=== PATIENT | female | born 1955 | race Caucasian/White ===

== ENCOUNTER 2025-05-25 18:53 | Observation (INO) ==
--- NOTE | 2025-05-25 19:45 | Emergency Department Note ---
Impression & Plan Pain in right hip, Sciatica, Intractable pain ED Provider Note CHIEF COMPLAINT: Right hip pain HISTORY OF PRESENTING ILLNESS: This 70-year-old female patient presents to the emergency department with her for evaluation of right hip pain that radiates down the right leg. She denies any injury or trauma. She denies any back pain. Denies any loss of control of their bowel or bladder functions. Denies any numbness of their legs. Denies weakness of their legs. Denies any saddle paresthesias. Denies abdominal pain, nausea, or vomiting. Denies urinary symptoms or changes in their BMs. Denies any chest pain or shortness of breath. The patient was seen in the ER on 05/23/2025 for similar symptoms. The patient had a CT scan of her lumbar spine without contrast that showed moderate left L4/5 neuroforaminal stenosis. Recommend MRI of the lumbar spine for further evaluation if indicated. Laboratory studies without concerning abnormalities. REVIEW OF SYSTEMS: See HPI for pertinent positives and pertinent negatives. ALLERGIES: Adhesive, hydrochlorothiazide, Wellbutrin, Demerol, Chantix, hydrocodone, prednisone MEDICATIONS: See below PAST MEDICAL HISTORY: See below PHYSICAL EXAM: VITALS: Vitals are noted on the nurse's note and reviewed by myself. GENERAL: Appears in pain, but non toxic in appearance and in no acute distress. Non-diaphoretic. SKIN: The skin of the back was without obvious rashes, erythema, edema, pilonidal abscess, or bruising. The skin of the right groin and right lower extremity without erythema, edema, rash, bruising, abscess, boil, or other abnormal skin lesion. HEAD: Normocephalic atraumatic. EYES: Pupils equal round and reactive to light and accommodation. The Extraocular movements intact. NECK: Supple without nuchal rigidity. No cervical spine tenderness. No paraspinous muscle tenderness. No lymphadenopathy. HEART: Regular rate and rhythm without murmurs gallops or rubs. LUNGS: Clear to auscultation bilaterally without wheezes, rales or rhonchi. ABDOMEN: Positive bowel sounds x 4. Normal tympanic percussion. Soft, nontender, without masses or organomegaly. Garcia sign negative. MUSCULOSKELETAL: There is no tenderness over the lumbar spinous processes. There is minimal tenderness over the paraspinous muscles on the right side. There is no tenderness over the thoracic spine or paraspinous muscles. There are no muscle spasms present. The patient is slow to move around with maximum tenderness with movement of the right hip. Positive straight leg raise test on the right side. Full ROM of the bilateral lower extremities, but with pain with range of motion of the right hip. Strength 5/5 and equal in the bilateral lower extremities. Deep tendon reflexes 2+ in the lower extremities. Dorsalis pedis and posterior tibial pulse 2+ and equal bilaterally. NEURO: Patient was alert and oriented to person place and time. Normal sensation to light and sharp touch of the bilateral lower extremities. No focal neurological deficits. DIFFERENTIAL DIAGNOSIS: Differential diagnosis includes strain/sprain, muscle spasm, disc herniation, fracture, subluxation, metastatic disease, cord compression, discitis, sciatica, cauda equina, conus medullaris syndrome, infection, epidural abscess, epidural hematoma, aortic disease, renal colic, UTI, pyelonephritis, gastrointestinal, as well as other pathologies. ED COURSE AND MEDICAL DECISION MAKING: HISTORY FROM INDEPENDENT HISTORIAN: Additional history obtained from the patient's MEDICATIONS GIVEN: 500 mL normal saline solution bolus. Fentanyl 50 mcg IV x 2, Zofran 4 mg IV, Toradol 10 mg IV, Valium 5 mg IV, Tylenol 1000 mg IV. The patient was initially ordered 24 mg of methylprednisolone prior to discharge before the patient decided she required admission for pain control. INTERPRETATION OF LABS: I interpreted the labs with full lab results as below in the lab section of this note. Laboratory results pertinent to the emergent complaint are discussed in the MDM section below. The patient was advised to follow up with their PCP and/or specialist(s) for further outpatient monitoring and management of any abnormal results. INTERPRETATION OF IMAGING: Imaging studies were interpreted by myself and read by radiology as per the imaging section of this note. The patient was advised to follow up with their PCP and/or specialist(s) for further outpatient management of any non-emergent abnormal findings. X-rays of the right hip and pelvis were negative for acute fracture, dislocation, or other acute findings. There are mild degenerative changes of the right hip. Venous Doppler of the right lower extremity was negative for DVT, SVT, or other acute abnormalities. CONSULTATIONS: On-call hospitalist MDM SUMMARY: I examined the patient. The patient was seen on 05/23/2025 for low back pain radiating into the right leg. Laboratory studies were without concerning abnormalities. CT scan of the lumbar spine without contrast showed moderate left L4/5 neuroforaminal stenosis. The patient had no focal neurologic deficits on exam and was discharged home. However, the patient has had continued symptoms that are not controlled well at home. No new or changing symptoms. On exam, the patient has no focal neurologic deficits. No red flag symptoms by history. I do not suspect emergent etiology such as conus medullaris syndrome, cauda equina syndrome, epidural abscess, or epidural hematoma. I do not feel the patient requires emergent MRI at this time based on history and exam. An IV lock was placed and the patient was medicated as above. X-rays of the right hip and pelvis were negative for acute fracture, dislocation, or other acute findings. There are mild degenerative changes of the right hip. Venous Doppler of the right lower extremity was negative for DVT, SVT, or other acute abnormalities. The patient still had continued pain despite the above treatment. Repeat exam again with no focal neurologic deficits. Continued normal abdominal exam and no abdominal pain. No rashes, lesions, or evidence for infection in the area of pain or discomfort. I had a meaningful discussion about this patient with Dr. Miles who agrees with my assessment and the treatment plan. I discussed outpatient treatment including a Medrol Dosepak, Flexeril, and Oxy IR. Initially the patient was agreeable to trial this, but after receiving additional pain medication in the ER, she still had continued pain despite the multiple pain medications and she did not feel she could appropriately care for herself at home. The patient's did not feel that he could adequately care for her in this amount of pain either. Laboratory studies obtained including a CBC and CMP without concerning abnormalities. The patient was unable to give a urine sample while in the ER. I spoke with the on-call hospitalist who agreed to admit the patient for pain control and further evaluation. Please refer to their dictation for further details. The patient was admitted in stable condition. DIAGNOSIS: Right hip pain likely secondary to sciatica Intractable pain Past Med/Surg History Problem List (Updated 05/26/25 @ 00:19 by Lashell Masters PA-C) Intractable pain (Acute) Sciatica (Acute) Pain in right hip (Acute) Acute lumbar radiculopathy (Acute) COVID-19 (Acute) Colon cancer screening Right-sided back pain Right flank pain Nocturnal hypoxemia Branch retinal artery occlusion Hammertoe of second toe of right foot History of bladder disorder Bicipital tendonitis of left shoulder Psoriasis Allergic rhinitis (Chronic) Cigarette nicotine dependence currently using the patch as well Hx of hematuria years ago GERD (gastroesophageal reflux disease) (Chronic) IBS (irritable bowel syndrome) (Chronic) Allergies Dyslipidemia (Chronic) Anxiety (Chronic) well controlled currently Mild obstructive sleep apnea cpap at night Hypertension (Chronic) Medical History Osteoarthritis History of Mohs micrographic surgery for skin cancer Hx of malignant neoplasm of skin Family history of Crohn's disease C. difficile colitis Surgical History H/O hammer toe correction History of cystoscopy History of esophagogastroduodenoscopy (EGD) History of colonoscopy History of cataract surgery S/P tubal ligation S/P hysterectomy Family History Mother Heart disease Hypertension Brother Crohn's disease Fibromyalgia Allergic rhinitis Father Hypertension Other No family history of adverse response to anesthesia Denies family history of Ovarian cancer Prostate cancer Diabetes Myocardial infarction Breast cancer Colorectal cancer Social History Smoking Status: Current every day smoker Tobacco Type: Cigarettes Age Started Using Tobacco: 28; packs per day: 0.5; Cigarettes Per Day: 10; Second Hand Exposure: No; Do You Dip or Chew Tobacco: No; Hx Alcohol Use: Yes Alcohol Intake Frequency: 2-3 x/Week Hx Substance Use: No Preferred Language: Latvian Communication Ability: Effective Program Review Director Required: No Beliefs That Will Affect Care: None marital status: Current Living Situation: Spouse current occupational status: retired Feels Safe at Home: Yes Childhood Exposure to Second-Hand Smoke: Yes Dental Care, Regularly: Yes Physical Activity Frequency: 3-4 Times per Week Seatbelt Use: always Sunscreen Use: Yes Assistive Devices: CPAP and Glasses Allergies Allergies Allergy/AdvReac Type Severity Reaction Status Date / Time adhesive Allergy Intermediate skin Verified 04/15/25 12:55 irritation hydrochlorothiazide Allergy Rash Verified 04/15/25 12:55 bupropion [From Wellbutrin] AdvReac Severe Palpitation Verified 04/15/25 12:55 s meperidine [From Demerol] AdvReac Severe Hallucinati Verified 04/15/25 12:55 ng varenicline [From Chantix] AdvReac Severe Confusion Verified 04/15/25 12:55 hydrocodone AdvReac Intermediate Confusion Verified 04/15/25 12:55 prednisone AdvReac Intermediate Palpitation Verified 04/15/25 12:55 s Home Meds Home Medications Medication Instructions Recorded Confirmed cholecalciferol (vitamin D3) 50 50 mcg PO QAM 05/29/20 05/25/25 mcg (2,000 unit) capsule (Vitamin D3) multivitamin 1 tab PO QAM 05/29/20 05/25/25 Previous Rx's Medication Instructions Recorded CPAP Machine #1 ea 09/28/20 atorvastatin 80 mg tablet 80 mg PO DAILY #90 tabs 04/22/24 montelukast 10 mg tablet 10 mg PO QAM #90 tabs 04/22/24 aspirin 81 mg tablet,delayed 81 mg PO DAILY #30 tabs 05/20/24 release ipratropium bromide 21 mcg (0.03 1 spray intranasal .COMPLEX 08/19/24 %) nasal spray Congestion #30 mL dexlansoprazole 60 mg 60 mg PO QAM GERD #90 caps 11/26/24 capsule,biphase delayed release famotidine 20 mg tablet 20 mg PO QID PRN gerd #360 tabs 11/26/24 betamethasone dipropionate 0.05 % 1 applic topical .COMPLEX #60 mL 12/25/24 lotion diltiazem HCl 120 mg 120 mg PO DAILY #90 caps 04/19/25 capsule,extended release 24 hr lisinopril 40 mg tablet 40 mg PO QAM #90 tabs 05/03/25 lorazepam 0.5 mg tablet 0.25 mg (1/2 x 0.5 mg) PO DAILY 05/03/25 PRN Anxiety #30 tabs nicotine 21 mg/24 hr daily 1 patch transdermal Q24H #14 ea 05/19/25 transdermal patch Results & Data (ED) Vital Signs Vital Signs - 24 hr 05/25/25 18:56 05/25/25 23:12 05/25/25 23:12 Temperature 36.8 C Temperature Source Temporal Artery Scan Pulse Rate 92 H Pulse Rate [Finger] Pulse Rhythm [Finger] Pulse Strength [Finger] Respiratory Rate 18 Respiratory Effort / Characteristics Non-Labored Spontaneous Respiratory Depth Normal Respiratory Pattern Regular Blood Pressure [Right Arm] Blood Pressure Mean [Right Arm] Blood Pressure Position Sitting Pulse Oximetry 96 89 L 98 Oxygen Delivery Method Room Air Room Air Nasal Cannula Oxygen Flow Rate 2 Sepsis Recent Fever Within 48 Hours No Sepsis New/Unexplained Change in Mental Status N/A Sepsis Action Taken by Nursing No Action Required 05/25/25 23:24 Temperature Temperature Source Pulse Rate Pulse Rate [Finger] 73 Pulse Rhythm [Finger] Regular Pulse Strength [Finger] Normal Respiratory Rate 18 Respiratory Effort / Characteristics Non-Labored Spontaneous Respiratory Depth Normal Respiratory Pattern Regular Blood Pressure [Right Arm] 169/85 H Blood Pressure Mean [Right Arm] 113 Blood Pressure Position Pulse Oximetry 97 Oxygen Delivery Method Room Air Oxygen Flow Rate Sepsis Recent Fever Within 48 Hours Sepsis New/Unexplained Change in Mental Status Sepsis Action Taken by Nursing Laboratory Data 05/25/25 23:19 05/25/25 23:19 Lab Results 05/25/25 Range/Units 23:19 WBC 8.29 (4.8-10.8) K/ul RBC 4.19 L (4.20-5.40) M/uL Hgb 12.9 (12.0-16.0) g/dl Hct 38.4 (37.0-47.0) % MCV 91.6 (80.0-100.0) fL MCH 30.8 (25.0-34.0) pg MCHC 33.6 (32.0-36.0) g/dL RDW Std Deviation 53.5 H (36.4-46.3) fL RDW Coeff of Lea 15.9 H (11.5-14.5) % Plt Count 240 (130-400) K/uL MPV 9.9 (9.4-12.4) fL Immature Gran % (Auto) 0.4 % Neut % (Auto) 57.5 % Lymph % (Auto) 31.1 % [place] % (Auto) 9.4 % Eos % (Auto) 1.2 % Baso % (Auto) 0.4 % Neut # (Auto) 4.77 (1.40-6.50) K/uL Lymph # (Auto) 2.58 (1.20-3.40) K/uL [place] # (Auto) 0.78 H (0.11-0.59) K/uL Eos # (Auto) 0.10 (0.00-0.50) K/uL Baso # (Auto) 0.03 (0.00-0.20) K/uL Immature Gran # (Auto) 0.03 (0.01-0.20) K/uL Sodium 140 (136-145) mmol/L Potassium 3.8 (3.5-5.1) mmol/L Chloride 106 (98-107) mmol/L Carbon Dioxide 27 (21-32) mmol/L Anion Gap 7 (3-11) BUN 13 (6-23) mg/dl Creatinine 0.71 (0.6-1.2) mg/dl Est Cr Clr Drug Dosing 62.8 ml/min eGFR 90.28 BUN/Creatinine Ratio 18.3 (10-20) Glucose 133 H (70-99(Fasting)) mg/dl Calcium 8.6 (8.6-10.3) mg/dl Total Bilirubin 0.3 (0.2-1.0) mg/dl AST 14 (13-39) U/L ALT 16 (7-52) U/L Alkaline Phosphatase 64 (34-104) U/L Total Protein 6.7 (6.0-8.3) gm/dl Albumin 4.0 (3.4-5.0) gm/dl Globulin 2.7 (2.5-4.0) gm/dl Albumin/Globulin Ratio 1.5 (0.9-2) Administered Medications Discontinued Medications Diazepam (Diazepam Inj 5 Mg/Ml 2 Ml Carp) 5 mg IV NOW ONE Stop: 05/25/25 22:37 Last Admin: 05/25/25 22:53 Dose: 5 mg Documented By: MARII Fentanyl Citrate (Fentanyl Citrate Pf 100 Mcg/2 Ml Vial) 50 mcg IV NOW STA Stop: 05/25/25 20:19 Last Admin: 05/25/25 20:25 Dose: 50 mcg Documented By: JAYANT Fentanyl Citrate (Fentanyl Citrate Pf 100 Mcg/2 Ml Vial) 50 mcg IV NOW STA Stop: 05/25/25 21:33 Last Admin: 05/25/25 21:43 Dose: 50 mcg Documented By: NIKKO Acetaminophen (Ofirmev) 1,000 mg in 100 mls @ 400 mls/hr IV NOW STA Stop: 05/25/25 22:50 Last Infusion: 05/25/25 23:26 Dose: Infused Documented By: Admin: 05/25/25 22:53 Dose: 400 mls/hr Documented By: MARII Sodium Chloride (Nss) 500 mls @ 999 mls/hr IV .Q31M ONE Stop: 05/25/25 23:56 Last Admin: 05/25/25 23:38 Dose: 999 mls/hr Documented By: JOSELITO Ketorolac Tromethamine (Ketorolac Tromethamine 15 Mg/Ml Vial) 10 mg IV NOW ONE Stop: 05/25/25 21:33 Last Admin: 05/25/25 21:44 Dose: 10 mg Documented By: NIKKO Methylprednisolone (Methylprednisolone 4 Mg Tab) 24 mg PO NOW ONE Stop: 05/25/25 22:37 Last Admin: 05/25/25 23:57 Dose: Not Given Documented By: JOSELITO Ondansetron HCl (Ondansetron Inj 2 Mg/Ml 2 Ml Vial) 4 mg IV NOW STA Stop: 05/25/25 20:19 Last Admin: 05/25/25 20:25 Dose: 4 mg Documented By: JAYANT Imaging Data Radiologist's Impression: Hip/Pelvis X-Ray 05/25/25 20:18 Exam(s): XR HIP + PELVIS, 2-3 views EXAM: XR Right Hip With Pelvis When Performed, 2 or 3 Views CLINICAL HISTORY: Reason for exam: Right hip pain. TECHNIQUE: Two or three views of the right hip with pelvis when performed. COMPARISON: No relevant prior studies available. FINDINGS: Bones/joints: Mild degenerative changes of the right hip. No acute fracture. No dislocation. Soft tissues: Unremarkable. IMPRESSION: No acute findings in the right hip. Electronically signed by: Yuri Moore MD 05/25/25 21:12 PM Venous Doppler Study 05/25/25 20:18 Exam(s): US VENOUS RIGHT LOWER EXTREMITY EXAM: US Duplex Right Lower Extremity Veins CLINICAL HISTORY: Reason for exam: Right leg pain - eval DVT. TECHNIQUE: Real-time duplex ultrasound scan of the right lower extremity veins integrating B-mode two-dimensional vascular structure, Doppler spectral analysis, color flow Doppler imaging and compression. COMPARISON: No relevant prior studies available. FINDINGS: Deep veins: Unremarkable. No DVT in the visualized common femoral, femoral, proximal deep femoral or popliteal veins. The veins demonstrate normal color flow, are normally compressible, with normal phasic flow and/or augmentation response. Superficial veins: Unremarkable. No thrombus in the visualized great saphenous vein. Soft tissues: No acute findings. No popliteal cyst. IMPRESSION: No DVT. Electronically signed by: Yuri Moore MD 05/25/25 22:24 PM Discharge Plan Visit Data Chief Complaint: Hip Pain Stated Complaint: HIP PAIN ED Provider: Ashleigh Miles ED Midlevel Provider: Lashell aMsters Discharge Problem: Pain in right hip, Sciatica, Intractable pain Patient Disposition: Admitted As Inpatient Condition: Fair Discharge Problem: Sciatica Qualifiers: Laterality: right Qualified Code(s): M54.31 - Sciatica, right side
[2025-05-25] MEDS: ONDANSETRON INJ 2 MG/ML 2 ML VIAL IV STA (20:25)
--- NOTE | 2025-05-25 21:12 | XRay Report ---
Exam(s): XR HIP + PELVIS, 2-3 views EXAM: XR Right Hip With Pelvis When Performed, 2 or 3 Views CLINICAL HISTORY: Reason for exam: Right hip pain. TECHNIQUE: Two or three views of the right hip with pelvis when performed. COMPARISON: No relevant prior studies available. FINDINGS: Bones/joints: Mild degenerative changes of the right hip. No acute fracture. No dislocation. Soft tissues: Unremarkable. IMPRESSION: No acute findings in the right hip. Electronically signed by: Yuri Moore MD 05/25/25 21:12 PM
[2025-05-25] MEDS: KETOROLAC TROMETHAMINE 15 MG/ML VIAL IV ONE (21:44)
--- NOTE | 2025-05-25 22:25 | Ultrasound Report ---
Exam(s): US VENOUS RIGHT LOWER EXTREMITY EXAM: US Duplex Right Lower Extremity Veins CLINICAL HISTORY: Reason for exam: Right leg pain - eval DVT. TECHNIQUE: Real-time duplex ultrasound scan of the right lower extremity veins integrating B-mode two-dimensional vascular structure, Doppler spectral analysis, color flow Doppler imaging and compression. COMPARISON: No relevant prior studies available. FINDINGS: Deep veins: Unremarkable. No DVT in the visualized common femoral, femoral, proximal deep femoral or popliteal veins. The veins demonstrate normal color flow, are normally compressible, with normal phasic flow and/or augmentation response. Superficial veins: Unremarkable. No thrombus in the visualized great saphenous vein. Soft tissues: No acute findings. No popliteal cyst. IMPRESSION: No DVT. Electronically signed by: Yuri Moore MD 05/25/25 22:24 PM
[2025-05-25] MEDS: ACETAMINOPHEN 1,000 MG/100 ML VIAL IV STA (22:53)
[2025-05-25] MEDS: SODIUM CHLORIDE 0.9% 500 ML IV ONE (23:38)
[2025-05-25 23:39] LABS: Hematocrit (blood only) 38.4 % (37.0-47.0); Hemoglobin 12.9 g/dl (12.0-16.0); Immature Granulocytes # (auto) 0.03 K/uL (0.01-0.20); Immature Granulocytes % (auto) 0.4 %; Mean Corpuscular Hemoglobin 30.8 pg (25.0-34.0); Mean Corpuscular Volume 91.6 fL (80.0-100.0); Platelet Count 240 K/uL (130-400); RDW Standard Deviation 53.5 fL (36.4-46.3); Red Blood Count 4.19 M/uL (4.20-5.40); White Blood Count 8.29 K/ul (4.8-10.8)
[2025-05-25] MEDS ORDERED: HYDROmorphone INJ 0.5 MG/0.5 ML SYR IV PRN (23:48)
--- NOTE | 2025-05-25 23:52 | History & Physical Report ---
Date of Service May 25, 2025 Assessment & Plan (1) Pain in right hip: (2) Intractable pain: (3) Lumbar foraminal stenosis: Plan Patient is a 70-year-old female with a past medical history of tobacco use, NIDIA on CPAP, HTN, HLD, GERD, IBS-C, anxiety, hematuria. Patient presented due to sudden onset right sided hip pain that began on Saturday after walking has been constant and severe since. She was evaluated in the ED 05/23 and discharged home after negative workup and lumbar spine CT revealed moderate left L4-5 neural foraminal stenosis. Patient returned to the ED 05/25 due to significant pain. Hip XR and right venous Doppler were negative for acute changes. She is being admitted for intractable hip pain. #intractable right hip pain hip x-ray negative, venous Doppler negative, lumbar spine CT revealed moderate left L4-5 neural foraminal stenosis (recommend MRI for further evaluation). Laboratories WNL. Denies any trauma to the area, denies any incontinence, no focal deficits on exam. MRI hip and lumbar spine ordered Pain control with IV Tylenol, Toradol, and Dilaudid as needed for breakthrough pain Narcan as needed Lidoderm patch ordered Zofran as needed - k pad prn Defer steroid use as no acute indication on admission, noted allergy to prednisone - discontinue medrol PO ordered in ED Defer PT/OT consults as patient able to ambulate #HTN continue lisinopril and diltiazem #NIDIA CPAP hs ordered #HLD continue with ASA and atorvastatin #Tobacco use 1 ppd for 30+ years. Encourage smoking cessation Declines need for nicotine patch on admission #GERD/IBS-C continue PPI and famotidine #History of hematuria previously evaluated by urology for possible bladder lesion. Patient denies any recent hematuria. VTE ppx: SCDs, low risk Dispo: med surg, obs Admission and Anticipated Discharge Date Admission Date: 05/25/25 - note that admit orders were placed prior to midnight History of Present Illness Chief Complaint: hip pain Primary Care Provider: Erika Harmon MD Patient is a 70-year-old female with a past medical history of tobacco use, NIDIA on CPAP, HTN, HLD, GERD, IBS-C, anxiety, hematuria. Patient presented due to sudden onset right sided hip pain that began on Saturday after walking has been constant and severe since. She was evaluated in the ED 05/23 and discharged home after negative workup and lumbar spine CT revealed moderate left L4-5 neural foraminal stenosis. Patient returned to the ED 05/25 due to significant pain. Hip XR and right venous Doppler were negative for acute changes. She is being admitted for intractable hip pain. Patient seen at bedside with her present. She states she went on a walk Saturday and developed severe right hip pain that radiates down her leg to her knee. She denies any numbness, tingling, bladder or bowel incontinence, trauma to the area. She typically ambulates without assistance at baseline and has been living. The pain has been about the same since it started and constant. She still has 8 out of 10 pain at bedside after receiving fentanyl 50 mcg IV x 2, Toradol 10 mg IV, Valium 5 mg IV, Tylenol 1G IV in the ED. Patient denies any back pain however recent lumbar spine CT revealed stenosis, she denies any previous spinal surgeries or trauma to her spine. She denies any fevers, chills, chest pain, shortness of breath, abdominal pain, bowel changes. She continues to smoke 1 pack/day of cigarettes, declines need for nicotine patch at this time. She occasionally drinks alcohol. She is compliant with her home CPAP for sleep apnea. She took all of her home medications today. She wishes to be DNR/DNI. Allergies Allergy/AdvReac Type Severity Reaction Status Date / Time adhesive Allergy Intermediate skin Verified 04/15/25 12:55 irritation hydrochlorothiazide Allergy Rash Verified 04/15/25 12:55 bupropion [From Wellbutrin] AdvReac Severe Palpitation Verified 04/15/25 12:55 s meperidine [From Demerol] AdvReac Severe Hallucinati Verified 04/15/25 12:55 ng varenicline [From Chantix] AdvReac Severe Confusion Verified 04/15/25 12:55 hydrocodone AdvReac Intermediate Confusion Verified 04/15/25 12:55 prednisone AdvReac Intermediate Palpitation Verified 04/15/25 12:55 s Home Medications Medication Instructions Recorded Confirmed Type cholecalciferol (vitamin D3) 50 50 mcg PO QAM 05/29/20 05/25/25 History mcg (2,000 unit) capsule (Vitamin D3) multivitamin 1 tab PO QAM 05/29/20 05/25/25 History CPAP Machine #1 ea 09/28/20 05/25/25 Rx atorvastatin 80 mg tablet 80 mg PO DAILY #90 tabs 04/22/24 05/25/25 Rx montelukast 10 mg tablet 10 mg PO QAM #90 tabs 04/22/24 05/25/25 Rx aspirin 81 mg tablet,delayed 81 mg PO DAILY #30 tabs 05/20/24 05/25/25 Rx release ipratropium bromide 21 mcg (0.03 1 spray intranasal .COMPLEX 08/19/24 05/25/25 Rx %) nasal spray Congestion #30 mL dexlansoprazole 60 mg 60 mg PO QAM GERD #90 caps 11/26/24 05/25/25 Rx capsule,biphase delayed release famotidine 20 mg tablet 20 mg PO QID PRN gerd #360 tabs 11/26/24 05/25/25 Rx betamethasone dipropionate 0.05 % 1 applic topical .COMPLEX #60 mL 12/25/24 05/25/25 Rx lotion diltiazem HCl 120 mg 120 mg PO DAILY #90 caps 04/19/25 05/25/25 Rx capsule,extended release 24 hr lisinopril 40 mg tablet 40 mg PO QAM #90 tabs 05/03/25 05/25/25 Rx lorazepam 0.5 mg tablet 0.25 mg (1/2 x 0.5 mg) PO DAILY 05/03/25 05/25/25 Rx PRN Anxiety #30 tabs nicotine 21 mg/24 hr daily 1 patch transdermal Q24H #14 ea 05/19/25 05/25/25 Rx transdermal patch Past Med/Surg History Problem List (Updated 05/26/25 @ 00:23 by Lora Wilson PA-C) Lumbar foraminal stenosis Intractable pain (Acute) Sciatica (Acute) Pain in right hip (Acute) Acute lumbar radiculopathy (Acute) COVID-19 (Acute) Colon cancer screening Right-sided back pain Right flank pain Nocturnal hypoxemia Branch retinal artery occlusion Hammertoe of second toe of right foot History of bladder disorder Bicipital tendonitis of left shoulder Psoriasis Allergic rhinitis (Chronic) Cigarette nicotine dependence currently using the patch as well Hx of hematuria years ago GERD (gastroesophageal reflux disease) (Chronic) IBS (irritable bowel syndrome) (Chronic) Allergies Dyslipidemia (Chronic) Anxiety (Chronic) well controlled currently Mild obstructive sleep apnea cpap at night Hypertension (Chronic) Medical History Osteoarthritis History of Mohs micrographic surgery for skin cancer Hx of malignant neoplasm of skin Family history of Crohn's disease C. difficile colitis Surgical History H/O hammer toe correction History of cystoscopy History of esophagogastroduodenoscopy (EGD) History of colonoscopy History of cataract surgery S/P tubal ligation S/P hysterectomy Family History Mother Heart disease Hypertension Brother Crohn's disease Fibromyalgia Allergic rhinitis Father Hypertension Other No family history of adverse response to anesthesia Denies family history of Ovarian cancer Prostate cancer Diabetes Myocardial infarction Breast cancer Colorectal cancer Social History Smoking Status: Current every day smoker Tobacco Type: Cigarettes Age Started Using Tobacco: 28; packs per day: 0.5; Cigarettes Per Day: 10; Second Hand Exposure: No; Do You Dip or Chew Tobacco: No; Hx Alcohol Use: No Hx Substance Use: No Preferred Language: Belarusian Communication Ability: Effective Bariatric Coordinator Required: No Beliefs That Will Affect Care: None marital status: Current Living Situation: Spouse current occupational status: retired Other Information That Helps Us Care for You: No Feels Safe at Home: Yes Safety Concerns: Feels Safe At This Time Childhood Exposure to Second-Hand Smoke: Yes Dental Care, Regularly: Yes Physical Activity Frequency: 3-4 Times per Week Seatbelt Use: always Sunscreen Use: Yes Assistive Devices: None Review of Systems Review of Systems: see HPI Physical Exam Physical Exam: The patient is awake, alert and oriented 3, well developed and well nourished, normocephalic and atraumatic, in no acute distress. Non-toxic appearing. HEENT- EOMI, mucous membranes moist. Hearing grossly intact. Heart-normal S1 and S2. No murmurs, rubs or gallops. Lungs-clear bilaterally, no respiratory distress, no accessory muscle use. Abdomen-normal bowel sounds and soft. No ascites noted. Non-tender. Extremities- no clubbing, cyanosis, or edema. No pain to palpation of right foot or IT band. Sensation intact. Rheumatologic-normal range of motion. Psychiatric-normal affect. Musculoskeletal: no cyanosis or clubbing, extremities motor strength 5/5 Results & Data Results & Data Vital Signs (Past 12 Hours) Vital Signs Temp Pulse Pulse Resp BP Pulse Ox O2 Del Method 05/25/25 23:24 73 18 169/85 H 97 Room Air 05/25/25 23:12 98 Nasal Cannula 05/25/25 23:12 89 L Room Air 05/25/25 18:56 36.8 C 92 H 18 96 Room Air O2 Flow Rate 05/25/25 23:24 05/25/25 23:12 2 05/25/25 23:12 05/25/25 18:56 Laboratory Results reviewed cbc and cmp ua ordered Diagnostic Findings reviewed hip xr and venous doppler study Medications Administered ED500 mL NSS bolus, fentanyl 50 mcg IV x 2, Zofran 4 Mg IV, Toradol 10 mg IV, Valium 5 mg IV, Tylenol 1G IV Code Status & VTE Plan Code Status dnr/dni VTE Prophylaxis Plan VTE Prophylaxis will be ordered: Yes Supervising Physician Co-Signing Physician Notes Attending addendum: I have physically seen this patient, have supervised the MINE's activities, and agree with the H&P unless as otherwise noted. Assessment and Plan: The patient is a 70-year-old female with past medical history including tobacco use, NIDIA on CPAP, hypertension, hyperlipidemia, GERD, IBS-C, anxiety, sciatica, hypertension, and history of hematuria. She presents to the emergency department due to sudden onset of right-sided hip pain that radiates into her groin, and down the medial aspect of her thigh to her knee, but does not extend below the knee. She presented to the emergency department on 05/23, and a CT scan of lumbar spine which revealed a moderate left L4-5 neuroforaminal stenosis, and after improvement of symptoms she was discharged home. Patient returns to the emergency department with recurrent symptoms, underwent a right hip x-ray and right venous Doppler, both of which were negative for acute changes. [facility]. Intractable right hip pain/radiation to right groin/radiation along thigh medially to right knee- X-ray of right hip negative Venous Doppler right leg negative Lumbar spine CT from 05/23 shows moderate left L4-5 neuroforaminal stenosis with recommendation for MRI Order MRI of lumbar spine and right hip Acetaminophen 1 g IV every 8 hours as needed for mild pain or fever Toradol 10 mg IV every 6 hours as needed for moderate pain Dilaudid 0.5 mg IV every 3 hours as needed for breakthrough pain Narcan per protocol Lidoderm patch Zofran 4 mg IV every 6 hours as needed K-pad as needed Depending upon results of the above studies, patient may benefit from a trial of steroids Hypertension- Continue lisinopril and diltiazem with hold parameters NIDIA- Order CPAP Hyperlipidemia- Continue aspirin and atorvastatin Tobacco use disorder- Smoked 1 pack/day for 30+ years Tobacco cessation counseling Patient declines nicotine patch during admission GERD/IBS-C-- Continue pantoprazole and famotidine PG Care Time/CCT Total # of Minutes Spent Total Time Spent with Patient: Total time spent is greater than 50% in coordination of care (as documented) at patient's floor/unit and/or counseling patient: Coding Level of Care Code 52584 INT INP/OBS CARE MIN Diagnoses Pain in right hip M25.551 Intractable pain R52 Lumbar foraminal stenosis M48.061
[2025-05-25 23:57] LABS: Alanine Aminotransferase 16.0 U/L (7-52); Albumin Globulin Ratio 1.5 (0.9-2); Alkaline Phosphatase 64.0 U/L (34-104); Anion Gap 7.0 (3-11); Bilirubin,Total 0.3 mg/dl (0.2-1.0); Blood Urea Nitrogen 13.0 mg/dl (6-23); Calcium 8.6 mg/dl (8.6-10.3); Carbon Dioxide 27.0 mmol/L (21-32); Chloride 106.0 mmol/L (98-107); Creatinine Clr Calc Pharmacy 62.8 ml/min; Globulin 2.7 gm/dl (2.5-4.0); Glucose 133.0 mg/dl (70-99(Fasting)); Potassium 3.8 mmol/L (3.5-5.1); Sodium 140.0 mmol/L (136-145); Total Protein 6.7 gm/dl (6.0-8.3)
[2025-05-25] MEDS: methylPREDNISolone 4 MG TAB PO ONE (23:57)
[2025-05-26] MEDS ORDERED: NALOXONE HCL 0.4 MG/1 ML VIAL/CARP IV PRN (00:03)
[2025-05-26] MEDS ORDERED: POLYETHYLENE (MIRALAX) 17 GM PACK PO PRN (00:17)
[2025-05-26] MEDS ORDERED: KETOROLAC TROMETHAMINE 15 MG/ML VIAL IV PRN (00:17)
[2025-05-26] MEDS ORDERED: FAMOTIDINE 20 MG TAB PO PRN (00:17)
[2025-05-26] MEDS ORDERED: ACETAMINOPHEN 1,000 MG/100 ML VIAL IV PRN (00:17)
[2025-05-26] MEDS ORDERED: ACETAMINOPHEN 500 MG TAB PO PRN (00:31)
[2025-05-26 01:02] VITALS: TEMP 98.1
[2025-05-26 01:12] LABS: Appearance Urine Clear (Clear); Bacteria Urine Automated None Seen (None Seen); Cast Urine Automated 0-2 /lpf (0-2); Epithelial Cell Urine Auto 0-2 /hpf (0-2); Glucose Urine UA Negative (Negative); WBC Urine Automated 0-5 /hpf (0-5)
[2025-05-26] MEDS: LIDOCAINE 5% 1 PATCH TD STA (02:01)
[2025-05-26] MEDS: MELATONIN 3 MG TAB PO PRN (02:07)
--- NOTE | 2025-05-26 02:37 | Magnetic Resonance Report ---
EXAM: MR lumbar spine wo con CLINICAL HISTORY: l4-5 foraminal stenosis TECHNIQUE: Multisequential and multiplanar images of the lumbar spine were submitted for review without contrast. COMPARISON: CT, 05/23/2025 22:36:29 UNDER TRIMMER FINDINGS: There is no abnormal bone marrow signal to suggest fracture. Multiple level small anterior marginal osteophytes and disc desiccation. The pars interarticularis are intact. The conus medullaris terminates at approximately L1 and demonstrates normal size and signal. T12-L1: Evaluated on sagittal images only. No disc bulge, canal stenosis or neuroforaminal narrowing. L1-L2: No disc herniation. No central canal stenosis or neuroforaminal narrowing. L2-L3: No disc herniation. No central canal stenosis or neuroforaminal narrowing. L3-L4: Left small foraminal disc herniation seen causing left neural foraminal narrowing.No significant central canal stenosis L4-L5: Mild posterior diffuse disc bulge seen icausing indentation of anterior thecal sac and bilateral mild neural foraminal narrowing . No significant central canal stenosis L5-S1: No disc herniation. No central canal stenosis or neuroforaminal narrowing. The visualized paraspinal soft tissues are grossly unremarkable. IMPRESSION: 1. Mild lumbar degenerative changes. 2. L3-L4: Left small foraminal disc herniation seen causing left neural foraminal narrowing.No significant central canal stenosis. 3. L4-L5: Mild posterior diffuse disc bulge seen causing indentation of anterior thecal sac and bilateral mild neural foraminal narrowing . No significant central canal stenosis 4. No interval changes. Electronically signed by Pedro Rod 05-26-2025 02:36 AM
--- NOTE | 2025-05-26 03:16 | Magnetic Resonance Report ---
EXAM: MR hip RT wo con CLINICAL HISTORY: intractable right hip pain TECHNIQUE: Multiplanar, multisequence MR imaging of the right hip was performed without contrast. COMPARISON: none FINDINGS: There is minimal right hip joint effusion . No trochanteric bursitis. The femoral head has normal contours and is well seated in the acetabulum, with no evidence of avascular necrosis or fracture. There is no bone marrow edema. The hamstring, sartorius, and rectus femoris origins are intact. The iliopsoas and gluteus medius/minimus insertions are intact. Adductor origins at the pubic symphysis are intact. Pelvic alignment is normal. The sacroiliac joints and pubic symphysis are within normal limits. Limited evaluation of the intrapelvic organs reveals no significant abnormality. The visualized lower lumbar spine is unremarkable. IMPRESSION: 1. Minimal right hip joint effusion . 2. No any other significant abnormality. Electronically signed by Pedro Rod 05-26-2025 03:16 AM
[2025-05-26] MEDS: ATORVASTATIN 40 MG TAB PO SCH (08:26)
[2025-05-26] MEDS: ASPIRIN 81 MG ECTAB PO SCH (08:26)
[2025-05-26] MEDS: MONTELUKAST SODIUM 10 MG TABLET PO SCH (08:26)
[2025-05-26] MEDS: METHOCARBAMOL 500 MG TABLET PO SCH (09:18)
[2025-05-26] MEDS: REMOVE LIDODERM PATCH ONE (13:36)
[2025-05-26 14:00] VITALS: RESP 14
--- NOTE | 2025-05-26 16:28 | Discharge Summary ---
Discharge Summary Date of Service May 26, 2025 Principal Dx & Hospital Course #1 = Principal Diagnosis (1) Pain in right hip: Lazara is a 70 yo woman with PMH of smoking, microscpic hematuria, sleep apnea, hypertension, she's came to the hospital with sudden onset right side hip pain and low back pain. started 2 days prior to admission. she's came to ED on 05/[address] lumbar spine found left L4-L5 foraminal stenosis. on 05/25, she again has significant hip pain and back pain and here for evaluation. her X-ray of the right hip is negative for fracture she s/p right MRI hip and negative for fracture. minimal right join effusion she s/p MRI lumbar spine 2. L3-L4: Left small foraminal disc herniation seen causing left neural foraminal narrowing.No significant central canal stenosis. 3. L4-L5: Mild posterior diffuse disc bulge seen causing indentation of anterior thecal sac and bilateral mild neural foraminal narrowing . No significant central canal stenosis she was started on toradol, robaxin for pain control on 3pm, she's stated her pain improved and able to ambulate and wear weight I walk her myself around the nursing station and she has no gait disturbance she was dc home on meloxicam and robaxin she was provided with low dose oxycodone 10mg (half tablet) we discussed that she need close f/u with orthopedic surgeon we discussed her finding of microscopic hematuria, she lost follow up with urology for 5-10 years she's was urge to follow up with urology for cystoscopy and kidney imaging ; risk of cancer, explained. (2) Intractable pain: (3) Lumbar foraminal stenosis: Plan Patient is a 70-year-old female with a past medical history of tobacco use, NIDIA on CPAP, HTN, HLD, GERD, IBS-C, anxiety, hematuria. Patient presented due to sudden onset right sided hip pain that began on Saturday after walking has been constant and severe since. She was evaluated in the ED 05/23 and discharged home after negative workup and lumbar spine CT revealed moderate left L4-5 neural foraminal stenosis. Patient returned to the ED 05/25 due to significant pain. Hip XR and right venous Doppler were negative for acute changes. She is being admitted for intractable hip pain. #intractable right hip pain hip x-ray negative, venous Doppler negative, lumbar spine CT revealed moderate left L4-5 neural foraminal stenosis (recommend MRI for further evaluation). Laboratories WNL. Denies any trauma to the area, denies any incontinence, no focal deficits on exam. MRI hip and lumbar spine ordered Pain control with IV Tylenol, Toradol, and Dilaudid as needed for breakthrough pain Narcan as needed Lidoderm patch ordered Zofran as needed - k pad prn Defer steroid use as no acute indication on admission, noted allergy to prednisone - discontinue medrol PO ordered in ED Defer PT/OT consults as patient able to ambulate #HTN continue lisinopril and diltiazem #NIDIA CPAP hs ordered #HLD continue with ASA and atorvastatin #Tobacco use 1 ppd for 30+ years. Encourage smoking cessation Declines need for nicotine patch on admission #GERD/IBS-C continue PPI and famotidine #History of hematuria previously evaluated by urology for possible bladder lesion. Patient denies any recent hematuria. VTE ppx: SCDs, low risk Dispo: med surg, obs Notes For Next Care Provider repeat urine analysis, referral to urology low dose CT chest Admission HPI Per Admitting Provider Patient is a 70-year-old female with a past medical history of tobacco use, NIDIA on CPAP, HTN, HLD, GERD, IBS-C, anxiety, hematuria. Patient presented due to sudden onset right sided hip pain that began on Saturday after walking has been constant and severe since. She was evaluated in the ED 05/23 and discharged home after negative workup and lumbar spine CT revealed moderate left L4-5 neural foraminal stenosis. Patient returned to the ED 05/25 due to significant pain. Hip XR and right venous Doppler were negative for acute changes. She is being admitted for intractable hip pain. Patient seen at bedside with her present. She states she went on a walk Saturday and developed severe right hip pain that radiates down her leg to her knee. She denies any numbness, tingling, bladder or bowel incontinence, trauma to the area. She typically ambulates without assistance at baseline and has been living. The pain has been about the same since it started and constant. She still has 8 out of 10 pain at bedside after receiving fentanyl 50 mcg IV x 2, Toradol 10 mg IV, Valium 5 mg IV, Tylenol 1G IV in the ED. Patient denies any back pain however recent lumbar spine CT revealed stenosis, she denies any previous spinal surgeries or trauma to her spine. She denies any fevers, chills, chest pain, shortness of breath, abdominal pain, bowel changes. She continues to smoke 1 pack/day of cigarettes, declines need for nicotine patch at this time. She occasionally drinks alcohol. She is compliant with her home CPAP for sleep apnea. She took all of her home medications today. She wishes to be DNR/DNI. Discharge Exam VITALS: Reviewed. WEIGHT/BMI reviewed. GEN: Healthy appearing, well-developed, NAD. -Head: NC/AT; -Eyes: PERRL, EOMI. No discharge or redness; -Ears: External ears are normal. Normal TMs. -Nose: Normal nares. -Mouth and throat: MMM. Normal gums, mucosa, palate,. Good dentition. NECK: Supple, with no masses. CV: RRR, no m/r/g. LUNGS: CTAB, no w/r/c. ABD: Soft, NT/ND, NBS, no masses or organomegaly. : N/A SKIN: Warm, well perfused. No skin rashes or abnormal lesions. MSK: No deformities, Normal gait. right hip non-painful to palpatin; able to wear weight; no asymmetric noted NEURO: Ambulating with no limitations. Normal muscle strength and tone. No focal deficits. Discharge Plan Discharge Items Patient Disposition: Home - Self-Care Reason For Visit: INTRACTABLE HIP PAIN Discharge Diagnosis: intractable right hip pain low back pain hx of smoking Condition on Discharge: Fair Activity: Per Instructions section Non-emergency contact: Primary Care Provider Call non-emergency contact if: you have any medication questions, your symptoms worsen and you have a fever Follow-up/Referrals: Erika Harmon MD [Primary Care Provider] - Diet: Regular Addtl Attending Provider Instructions: you will f/u with your PCP if you continue to has hip pain, follow up with your primary care doctor and orthopedic quit smoking, Pending Studies at Discharge: Yes Studies:: annual low dose cT chest Stand-Alone Forms: [employer], Smoking Cessation Medications and DC Order Prescriptions: New methocarbamol 500 mg Tablet 500 mg PO TID 30 Days Qty: 90 0RF lidocaine 5 % Adhesive Patch,Medicated 1 patch transdermal HS 30 Days Qty: 4 0RF meloxicam 7.5 mg tablet 7.5 mg PO DAILY Qty: 14 0RF oxycodone 10 mg tablet 10 mg PO Q8H PRN (Reason: pain) 4 Days Qty: 14 0RF naloxone [Narcan] 4 mg/actuation spray,non-aerosol 4 mg intranasal ONCE 30 Days Qty: 2 0RF Continued atorvastatin 80 mg tablet 80 mg PO DAILY Qty: 90 3RF montelukast 10 mg tablet 10 mg PO QAM Qty: 90 3RF ipratropium bromide 21 mcg (0.03 %) spray,non-aerosol 1 spray intranasal .COMPLEX Qty: 30 11RF Rx Instructions: 1 spray intranasal once daily at bedtime, may increase to 2 sprays if needed; administer into each nostril diltiazem HCl 120 mg capsule,extended release 24hr 120 mg PO DAILY Qty: 90 3RF lisinopril 40 mg tablet 40 mg PO QAM Qty: 90 3RF lorazepam 0.5 mg tablet 0.25 mg PO DAILY PRN (Reason: Anxiety) Qty: 30 0RF Rx Instructions: Ongoing therapy Supervising physician Erika Buckley MD YAS [id number] nicotine 21 mg/24 hr patch 24 hour 1 patch transdermal Q24H Qty: 14 0RF (DME) CPAP Machine Misc See Rx Instructions .MEDSUPPLY Qty: 1 0RF Rx Instructions: CPAP 5-15 cm water pressure with heated humidification, tubing, a mask, and supplies. LELAND: 99+ years. betamethasone dipropionate 0.05 % lotion 1 applic topical .COMPLEX Qty: 60 1RF Rx Instructions: Apply 1 to 2 times to scalp for up to 2 weeks when itchy and flaring dexlansoprazole 60 mg capsule,biphase delayed releas 60 mg PO QAM Qty: 90 3RF famotidine 20 mg tablet 20 mg PO QID PRN (Reason: gerd) Qty: 360 3RF Rx Instructions: TAKE 1 TABLET BY MOUTH AT BEDTIME FOR GERD aspirin 81 mg tablet,delayed release (DR/EC) 81 mg PO DAILY Qty: 30 2RF multivitamin Tablet 1 tab PO QAM cholecalciferol (vitamin D3) [Vitamin D3] 50 mcg (2,000 unit) Capsule 50 mcg PO QAM Krames/Other Patient Handouts: Hematuria Ch Urologic Causes, Osteoarthritis: Common Sites, ED Blood in the Urine Admission Data Admit Date/Time: 05/25/25 23:56 Attending Provider: Avni Weiss Admit Provider: Jatinder Lee Primary Care Provider: Erika Harmon Other Providers: Jatinder Lee Hospital Stay Data Consultations 05/25/25 23:34 ED Decision to Admit Stat Diagnostic Imagining Performed 05/25/25 20:18 US venous doppler LE RT Stat 05/26/25 00:15 MR hip RT wo con Stat MR lumbar spine wo con Stat Pending Results Patient Have Any Pending Studies at Discharge: Yes Discharge Instructions Given to Patient (Per Discharging Provider) you will f/u with your PCP if you continue to has hip pain, follow up with your primary care doctor and orthopedic quit smoking, Total Time Total Time Spent Total Time Spent (In Minutes): 25 Coding Level of Care Code 32264 IN/OBS DISCH 30 MIN/LESS Diagnoses Pain in right hip M25.551 Intractable pain R52 Lumbar foraminal stenosis M48.061 Time Spent (min) 25
[2025-05-26] MEDS: HYDROmorphone INJ 1 MG/ML SYRINGE IV PRN (16:33)
[2025-05-26] MEDS: ONDANSETRON INJ 2 MG/ML 2 ML VIAL IV PRN (18:19)
[2025-05-26] MEDS: PROCHLORPERAZINE 5 MG in SYRINGE 4 ML IV ONE (19:27)
[2025-05-26 19:31] VITALS: BP 160/77; PULSE 88; O2SAT 94
[2025-05-26] MEDS ORDERED: IPRATROPIUM BROMIDE NASAL SPRAY 0.03% 30 ML NAE SCH (21:00)
[2025-05-26] MEDS ORDERED: LIDOCAINE 5% 1 PATCH TD SCH (21:00)
[2025-05-27] MEDS ORDERED: REMOVE LIDODERM PATCH SCH (09:00)
== END 2025-05-26 19:48 | disposition home or self-care (01) ==
LOC: ED 18:53 → EDINP 18:53 → SUATTDRO 23:56 → EDINP 05-26 00:17